=== PATIENT | female | born 1940 | race Two or more races ===

== ENCOUNTER → 2019-01-10 | Outpatient (CLI) | payer MEDICARE, OTHER ==
--- NOTE | 2019-01-10 10:14 | CONS ---
Assessment/Plan Assessment/Plan Hospital Course (Demo Recall) 78-year-old female with a windswept deformity. She has failed many conservative treatments for her bilateral knee pain left much worse than right. There is a component of her pain that is likely due to lumbar radiculopathy however the majority appears to be secondary to end-stage osteoarthritis. At this time she is not ready to undergo a surgery and she would like to continue to try conservative treatment. I offered a corticosteroid injection to both knees. She agreed with the plan. Plan: Bilateral knee steroid injection Ice Low impact activity Weight loss Follow-up in 3 months or sooner if the injection fails to help. Assessment/Plan (Daily) Right and left knee steroid injection procedure: Risks and benefits of steroid injection reviewed with patient. The risks include infection, failure, pain, swelling, nerve/tendon/ligament damage. The patient verbalized understanding and verbal consent was obtained prior to procedure. The right and left knee was prepped in a sterile fashion with alcohol and betadine the site of injection was confirmed. Lateral approach was used. The skin and capsule was anesthetized with 3mL 1% lidocaine. The right and left knee were each injected with 2mL 1% lidocaine, 2mL 0.25% bupivacaine, 40mg Depo- Medrol. Injection flowed freely. Good hemostasis was achieved and no complications noted. The patient tolerated the procedure well. Limit activity a nd ice for 24-48 hours Consultation Date/Type/Reason Admit Date/Time Date of Consultation: Jan 10, 2019 Reason for Consultation Bilateral knee pain Date/Time of Note DATE: 01/10/19 TIME: 10:13 Hx of Present Illness Is a 78-year-old female with a chief complaint of right and left knee pain. The pain is much worse in the left knee. The pain began approximately 1 year ago. The patient's pain is in the posterior aspect of the left knee and radiates along the lateral calf into the lateral foot. Along the posterior aspect of the right. Pain is not radiating to the lower leg. The pain is rated as a 10/10. The pain is described as sharp, stabbing, and electrical. Also complains of weakness. Patient denies complaints of numbness or tingling. The pain is exacerbated by climbing stairs and ambulation. She had bilateral NDIAYE injections in August 2018. She only had 1-2 months of relief. Pain is partially relieved by NSAID's. Patient has been taking meloxicam on a p.r.n. basis as well as using ice. ----- Duration: One year Injury: No Walking tolerance: Less than 1 block Limp: Yes Support: Walker Swelling: Yes Crepitation: Yes Instability: No Stairs: Difficult Physical Therapy: Yes Injections: Bilateral NDIAYE injections with only 1-2 months relief. Injections were August 2018 NSAID's: Meloxicam Prior surgery: No Back pain: No Hip pain: No Risk of AVN : no Patient denies fever, chills, shortness of breath, chest pain, nausea/vomiting, constipation, diarrhea, numbness, and tingling. Past Medical History Hypertension Hypothyroidism Hearing loss Past Surgical History Past Surgical Hx: noncontributory Family History Significant Family History: no pertinent family hx Social History Alcohol Use: none Smoking Status: Former smoker Drug Use: none Exam/Review of Systems Exam Vitals Weight: 183 pounds Height: 5 feet 4 inches Temperature: 98.4 Heart Rate: 66 Blood Pressure: 157/77 Respiratory Rate: 14 Exam General: Awake, alert, in no acute distress, pleasant and cooperative Heart: regular rhythm Lungs: breathing comfortably, no tachypnea or dyspnea MUSCULOSKELETAL: Right and Left Knee This is a well developed female who is alert, oriented times three and in no apparent distress. Skin is intact over the right and left knee as well as the lower extremity with no abrasions, lacerations, or ulcerations. Observation of the patient's gait reveals an antalgic gait with a short stride length. No significant thrust. Frontal plane alignment is valgus alignment on the right and varus alignment on the left. She has a windswept deformity of the knees. There is significant pain on palpation of the medial joint line of the left knee and mildmoderate pain to palpation of the lateral joint line of the right knee. The patient demonstrates grinding anteriorly with ROM. Range of motion: 10 extension to approximately 110 degrees of flexion on the right and 1090 on the left.. Collateral ligament testing reveals no instability with varus or valgus stress at 0 and 30 degrees of flexion. Negative Emerald's and negative posterior drawer. Neurovascularly intact with 5/5 EHL/tibialis anterior/gastroc. Sensation intact to light touch in a sural, saphenous, deep peroneal, superficial peroneal, medial and lateral plantar nerve distribution. Palpable, symmetric dorsalis pedis and posterior tibial pulses in both lower extremities. Hip examination normal Imaging Imaging The patient received a standard set of films today that were personally reviewed. Imaging included a standing bilateral knee AP, PA flexion, merchant views and a dedicated lateral of the right and left knee: Right knee: There is valgus alignment of the knee. There is complete loss of joint space in the lateral compartment and mild to moderate loss in the patellofemoral and medial compartment(s). There is osteophyte formation. There is subchondral sclerosis. There are subchondral cysts. Degenerative changes are most severe in the lateral compartment(s) Leftt knee: There is varus alignment of the knee. There is complete loss of joint space in the medial compartment and mildmoderate in the lateral and patellofemoral compartment(s). There is osteophyte formation. There is subchondral sclerosis. There are subchondral cysts. Degenerative changes are most severe in the medial compartment(s) ARIAN GOMEZ MD Jan 10, 2019 10:14
--- NOTE | 2019-01-12 09:50 | RADRPT ---
PROCEDURE: XR knees CLINICAL INDICATION: bilateral knee pain. TECHNIQUE: 4 weightbearing views of the bilateral knees were obtained. COMPARISON: None. FINDINGS: Right knee: There is no acute fracture dislocation. Osseous structures are intact. There are moderat e osteoarthritic changes of the knee, most notable at the lateral tibiofemoral compartment. Bones are osteopenic. There is no knee joint effusion. Left knee: There is no acute fracture dislocation. Osseous structures are intact. There are moderate osteoarthritic changes of the knee, most notable at the medial tibiofemoral compartment. Bones are o steopenic. There is a small knee joint effusion. IMPRESSION: 1. Moderate right knee osteoarthritis, most notable at the lateral tibiofemoral compartment. 2. Moderate left knee osteoarthritis, most notable at the medial tibiofemoral compartment. 3. Osteopenia. 4. Small left knee joint effusion. RPTAT: DD Physician Arnaud Date Time Electronically viewed and signed by Physician Arnaud on 01/12/2019 09:49 /
== END | disposition home or self-care (01) ==
LOC: HKI 10:00
PROVIDERS: ATTEND Orthopaedic Surgery Adult Reconstructive Orthopaedic Surgery
DX: M17.0 Bilateral primary osteoarthritis of knee (principal)
CPT/HCPCS: 20610; 73564; G0463

== ENCOUNTER → 2019-04-11 | Outpatient (CLI) | payer MEDICARE, OTHER ==
--- NOTE | 2019-04-11 17:51 | CONS ---
Consult Date/Type/Reason Admit Date/Time Initial Consult Date Date/Time of Note DATE: 04/11/19 TIME: 17:42 Subjective 78-year-old female following up in clinic today for repeat bilateral knee steroid injections. She had bilateral knee steroid injections in January 2019. She states the injections helped for a full 3 months. Her symptoms are unchanged from prior visits. Objective Vitals Weight: 183 pounds Height: 5 foot 4 inches Temperature: 90.4 Heart Rate: 61 Blood Pressure: 153/67 Respiratory Rate: 14 Exam General: Awake, alert, in no acute distress, pleasant and cooperative Heart: regular rhythm Lungs: breathing comfortably, no tachypnea or dyspnea MUSCULOSKELETAL: Bilateral lower extremities: Skin intact. No erythema. Sensation intact to light touch in a sural, saphenous, deep peroneal, superficial peroneal, medial and lateral plantar nerve distribution. Motor is intact, patient able to dorsiflex and plantarflex ankle and extend and flex great toe. Dorsalis Pedis pulse +2, Brisk capillary refill. Compartments are soft. Calves non-tender to palpation bilaterally. Assessment/Plan Hospital Course (Demo Recall) 78-year-old female with bilateral knee osteoarthritis. She previously had bila teral knee steroid injections which gave her good relief for 3 months. She would like to repeat injections today. Plan: Bilateral knee steroid injections Ice Low impact activity Follow-up 3 months Assessment/Plan (Daily) Right and left knee steroid injection procedure: Risks and benefits of steroid injection reviewed with patient. The risks include infection, failure, pain, swelling, nerve/tendon/ligament damage. The patient verbalized understanding and verbal consent was obtained prior to procedure. The right and left knee was prepped in a sterile fashion with alcohol and betadine the site of injection was confirmed. Anteromedial approach was used. The skin and capsule was anesthetized with 3mL 1% lidocaine. The right and left knee was injected with 2mL 1% lidocaine, 2mL 0.25% bupivacaine, 40mg Depo- Medrol. Injection flowed freely. Good hemostasis was achieved and no complications noted. The patient tolerated the procedure well. Limit activity and ice for 24-48 hours ARIAN GOMEZ MD Apr 11, 2019 17:51
== END | disposition home or self-care (01) ==
LOC: HKI 09:42
PROVIDERS: ATTEND Orthopaedic Surgery Adult Reconstructive Orthopaedic Surgery
DX: M17.0 Bilateral primary osteoarthritis of knee (principal)
CPT/HCPCS: 20610; G0463